=== PATIENT | male | born 1970 | race Two or more races ===

== ENCOUNTER 2023-10-12 14:35 | Inpatient (IN) | payer OTHER ==
[~2023-10-12] VITALS: Ht 167.6 cm; Wt 67.3 kg
[2023-10-12] MEDS: PANTOPRAZOLE SODIUM 40 MG/VIAL IVP ONE (15:02)
[2023-10-12] MEDS: ONDANSETRON HCL 4 MG/2 ML VIAL IVP ONE (15:02)
[2023-10-12] MEDS: SODIUM CHLORIDE 0.9% 1,000 ML IV ONE ×3 (15:02→19:04)
[2023-10-12 15:13] LABS: BASOPHILS % (AUTO) 0.1 % (0.0-2.0); EOSINOPHILS % (AUTO) 0 % (1.0-6.0); HEMATOCRIT 33.9 % (41-53); HEMOGLOBIN 12.3 g/dL (13.5-17.5); LYMPHOCYTES # (AUTO) 0.9 K/uL (1.0-4.8); LYMPHOCYTES % (AUTO) 9.1 % (22.0-44.0); MEAN CORPUSCULAR HEMOGLOBIN 32.3 pg (26.0-34.0); MEAN CORPUSCULAR HGB CONC 36.1 G/dL (31.0-37.0); MEAN CORPUSCULAR VOLUME 90 fL (80-100); MONOCYTES # (AUTO) 0.9 K/uL (0.1-1.0); MONOCYTES % (AUTO) 8.7 % (2.0-9.0); NEUTROPHILS % (AUTO) 82.1 % (40.0-70.0); PLATELET COUNT (AUTO) 140 K/uL (150-450); RED BLOOD CELL COUNT(AUTO) 3.79 MIL/uL (4.50-5.90); WHITE BLOOD COUNT (AUTO) 9.8 K/uL (4.5-11.0)
[2023-10-12 15:25] LABS: ALANINE AMINOTRANSFERASE 71 U/L (12-78); ALBUMIN 2.9 g/dL (3.4-5.0); ALKALINE PHOSPHATASE 88 U/L (46-116); ANION GAP 17 mmol/L (8-16); ASPARTATE AMINOTRANSFERASE 63 U/L (15-37); BILIRUBIN,TOTAL 1.5 mg/dL (0.1-1.0); CALCIUM, TOTAL 7.6 mg/dL (8.8-10.5); CARBON DIOXIDE 24 mmol/L (22-29); CHLORIDE 68 mmol/L (98-107); CREATININE 0.61 mg/dL (0.60-1.30); GLOMERULAR FILTR. RATE CALC > 60 mL/min (>60); GLUCOSE,RANDOM 293 mg/dL (70-110); LIPASE 96 U/L (16-77); TOTAL PROTEIN, SERUM 6.2 g/dL (6.4-8.2); UREA NITROGEN, BLOOD 9 mg/dL (7-18)
[2023-10-12 15:26] LABS: INR 1.1 (0.9-1.1)
[2023-10-12 15:30] LABS: SODIUM SERUM 109 mmol/L (136-145)
[2023-10-12 15:34] LABS: POTASSIUM 2.8 mmol/L (3.5-5.1)
[2023-10-12] MEDS: PANTOPRAZOLE SODIUM 80 MG in SODIUM CHLORIDE 0.9% 100 ML IV SCH (15:46)
[2023-10-12 16:05] LABS: ALCOHOL, BLOOD (SERUM) 363 mg/dL (0-10)
[2023-10-12 16:46] LABS: APPEARANCE,URINE CLEAR (CLEAR); BILIRUBIN,URINE NEGATIVE (NEGATIVE); COLOR,URINE LIGHT YELLOW (YELLOW); GLUCOSE, URINE (UA) >=1000 mg/dL (NEGATIVE); KETONES,URINE 40-60 mg/dL (NEGATIVE); LEUKOCYTE ESTERASE ,URINE NEGATIVE (NEGATIVE); NITRATE,URINE NEGATIVE (NEGATIVE); OCCULT BLOOD,URINE TRACE (NEGATIVE); PROTEIN,URINE TRACE mg/dL (NEGATIVE); UROBILINOGEN,URINE <=1.0 mg/dL (<=1.0)
[2023-10-12 16:58] LABS: SALICYLATE < 2.8 mg/dL (2.8-20.0)
[2023-10-12 16:59] LABS: ACETAMINOPHEN < 2 mcg/mL (10-30)
[2023-10-12 16:59] LABS: POTASSIUM,URINE RANDOM 27 mmol/L (12-75); SODIUM,URINE RANDOM 24 mmol/l (20-110)
[2023-10-12 17:07] LABS: RBC,URINE None Seen /HPF (0-2); WBC,URINE 0-2 /HPF (0-5)
[2023-10-12 17:08] LABS: BACTERIA,URINE None Seen /HPF (None Seen)
[2023-10-12 17:15] LABS: OSMOLALITY,URINE 701 mOsm/kg (50-1500)
[2023-10-12 17:20] LABS: ACETONE,BLOOD NEGATIVE (NEGATIVE)
[2023-10-12] MEDS: OCTREOTIDE ACETATE 100 MCG/ML VIAL IVP ONE (19:02)
[2023-10-12] MEDS: OCTREOTIDE ACETATE 500 MCG in SODIUM CHLORIDE 0.9% 97.5 ML IV SCH (19:03)
[2023-10-12 19:06] LABS: HEMATOCRIT 34.2 % (41-53); HEMOGLOBIN 12.4 g/dL (13.5-17.5)
[2023-10-12 19:20] LABS: ANION GAP 18 mmol/L (8-16); CALCIUM, TOTAL 7.5 mg/dL (8.8-10.5); CARBON DIOXIDE 22 mmol/L (22-29); CHLORIDE 71 mmol/L (98-107); CREATININE 0.53 mg/dL (0.60-1.30); GLOMERULAR FILTR. RATE CALC > 60 mL/min (>60); GLUCOSE,RANDOM 221 mg/dL (70-110); POTASSIUM 3.4 mmol/L (3.5-5.1); UREA NITROGEN, BLOOD 8 mg/dL (7-18)
[2023-10-12 19:24] LABS: SODIUM SERUM 111 mmol/L (136-145)
[2023-10-12] MEDS: POTASSIUM CHL 10 MEQ/WATER 50 ML IV SCH (19:25)
[2023-10-12] MEDS ORDERED: ROCURONIUM BROMIDE 10 MG/ML 5 ML VIAL ONE (19:36)
[2023-10-12] MEDS ORDERED: ETOMIDATE 2 MG/ML 10 ML VIAL ONE (19:36)
[2023-10-12 19:50] VITALS: PULSE 95; RESP 20; O2SAT 100
[2023-10-12 20:40] LABS: GLUCOMETER DEV NAME(LOC) ER.7; GLUCOSE,POINT OF CARE 222 MG/DL (70-110)
[2023-10-12] MEDS: PROPOFOL 1000 MG/ISO-OSM 100 ML IV PRN (20:42)
[2023-10-12] MEDS ORDERED: MIDAZOLAM HCL 5 MG/ML VIAL ONE (20:48)
[2023-10-12] MEDS: MIDAZOLAM HCL 5 MG/ML VIAL IVP ONE (20:56)
[2023-10-12] MEDS: ROCURONIUM BROMIDE 10 MG/ML 5 ML VIAL IVP ONE (21:12)
[2023-10-12] MEDS: ETOMIDATE 2 MG/ML 10 ML VIAL IVP ONE (21:15)
[2023-10-12 21:27] LABS: ANION GAP 16 mmol/L (8-16); CALCIUM, TOTAL 6.6 mg/dL (8.8-10.5); CARBON DIOXIDE 20 mmol/L (22-29); CHLORIDE 76 mmol/L (98-107); CREATININE 0.42 mg/dL (0.60-1.30); GLOMERULAR FILTR. RATE CALC > 60 mL/min (>60); GLUCOSE,RANDOM 196 mg/dL (70-110); PHOSPHORUS 2.9 mg/dL (2.5-4.9); UREA NITROGEN, BLOOD 8 mg/dL (7-18)
[2023-10-12 21:30] LABS: ABG A-A DIFF O2 295.2 mmHg (10-20.0); ABG CARBOXYHEMOGLOBIN 0.4 % (0.0-1.5); ABG HCO3 20.2 mmol/L (22.0-26.0); ABG METHEMOGLOBIN 1.1 % (0.0-1.5); ABG OXYGEN CONTENT 16.6 mL/dL (15.0-23.0); ABG OXYGEN SATURATION 99.7 % (95.0-98.0); ABG OXYHEMOGLOBIN 98.2 % (94.0-100.0); ABG PCO2 33 mmHg (35-45); ABG PH 7.378 (7.35-7.450); ABG TOTAL HEMOGLOBIN 11.3 G/dL (12.0-18.0); O2 DEVICE,BLOOD GAS VENT (ROOM AIR); SITE, BLOOD GAS RT BRACHIAL; SOURCE, BLOOD GAS ARTERIAL; TEMPERATURE, FAHRENHEIT, BG 97.5 FAHREN (96.0-98.6); VT, ABG 420 ml
[2023-10-12 21:31] LABS: PEEP,BG 5 cm H2O
[2023-10-12] MEDS: MIDAZOLAM HCL 100 MG in SODIUM CHLORIDE 0.9% 180 ML IV PRN (21:31)
[2023-10-12 21:54] LABS: POTASSIUM 2.4 mmol/L (3.5-5.1); SODIUM SERUM 112 mmol/L (136-145)
[2023-10-12 22:10] VITALS: PULSE 124; RESP 24; O2SAT 100
[2023-10-12] MEDS: SODIUM CHLORIDE 3% 500 ML IV ONE (22:56)
[2023-10-12] MEDS: MAGNESIUM SULFATE 3 GM in DEXTROSE 5%-WATER 100 ML IV ONE (22:56)
[2023-10-13] VITALS (10 sets, daily range): BP systolic 97–104; BP diastolic 56–67; PULSE 101–134; RESP 21–32; TEMP 99.3–100.7; O2SAT 98–100
[2023-10-13] MEDS: POTASSIUM CHL 10 MEQ/WATER 50 ML IV SCH (00:01)
[2023-10-13 00:50] LABS: ANION GAP 17 mmol/L (8-16); CALCIUM, TOTAL 6.5 mg/dL (8.8-10.5); CARBON DIOXIDE 22 mmol/L (22-29); CHLORIDE 80 mmol/L (98-107); CREATININE 0.42 mg/dL (0.60-1.30); GLOMERULAR FILTR. RATE CALC > 60 mL/min (>60); GLUCOSE,RANDOM 175 mg/dL (70-110); POTASSIUM 3.3 mmol/L (3.5-5.1); UREA NITROGEN, BLOOD 7 mg/dL (7-18)
[2023-10-13 00:56] LABS: SODIUM SERUM 119 mmol/L (136-145)
[2023-10-13] MEDS: PANTOPRAZOLE SODIUM 80 MG in SODIUM CHLORIDE 0.9% 100 ML IV SCH (02:34)
[2023-10-13] MEDS: OCTREOTIDE ACETATE 500 MCG in SODIUM CHLORIDE 0.9% 97.5 ML IV SCH (04:05)
[2023-10-13] MEDS: ACETAMINOPHEN 1000 MG/ISO-OSM 100 ML IV ONE (04:09)
[2023-10-13] MEDS: NOREPINEPHRINE 8 MG/0.9 % NACL 250 ML IV PRN (05:16)
[2023-10-13 05:28] LABS: BASOPHILS % (AUTO) 0.1 % (0.0-2.0); EOSINOPHILS % (AUTO) 0.1 % (1.0-6.0); HEMATOCRIT 27.7 % (41-53); LYMPHOCYTES # (AUTO) 0.6 K/uL (1.0-4.8); LYMPHOCYTES % (AUTO) 6.6 % (22.0-44.0); MEAN CORPUSCULAR HEMOGLOBIN 32.7 pg (26.0-34.0); MEAN CORPUSCULAR VOLUME 91 fL (80-100); MONOCYTES # (AUTO) 0.4 K/uL (0.1-1.0); MONOCYTES % (AUTO) 4.7 % (2.0-9.0); NEUTROPHILS # (AUTO) 7.6 K/uL (1.8-7.7); PLATELET COUNT (AUTO) 90 K/uL (150-450); RED BLOOD CELL COUNT(AUTO) 3.04 MIL/uL (4.50-5.90); RED CELL DISTRIBUTION WIDTH 13.4 % (11.5-14.5); WHITE BLOOD COUNT (AUTO) 8.7 K/uL (4.5-11.0)
[2023-10-13 05:33] LABS: PHOSPHORUS 1.8 mg/dL (2.5-4.9)
[2023-10-13 05:42] LABS: NEUTROPHILS % (AUTO) 88.5 % (40.0-70.0)
[2023-10-13 06:10] LABS: ANION GAP 17 mmol/L (8-16); CALCIUM, TOTAL 6.7 mg/dL (8.8-10.5); CARBON DIOXIDE 21 mmol/L (22-29); CHLORIDE 78 mmol/L (98-107); CREATININE 0.53 mg/dL (0.60-1.30); GLOMERULAR FILTR. RATE CALC > 60 mL/min (>60); GLUCOSE,RANDOM 171 mg/dL (70-110); PHOSPHORUS 1.8 mg/dL (2.5-4.9); POTASSIUM 3.8 mmol/L (3.5-5.1); UREA NITROGEN, BLOOD 7 mg/dL (7-18)
[2023-10-13 06:15] LABS: SODIUM SERUM 116 mmol/L (136-145)
[2023-10-13] MEDS: SODIUM PHOS,M-BASIC-D-BASIC 30 MMOL in DEXTROSE 5%-WATER 250 ML IV ONE (07:16)
[2023-10-13] MEDS: PROPOFOL 1000 MG/ISO-OSM 100 ML IV PRN (10:16)
[2023-10-13 11:57] LABS: ANION GAP 19 mmol/L (8-16); CALCIUM, TOTAL 6.8 mg/dL (8.8-10.5); CARBON DIOXIDE 19 mmol/L (22-29); CHLORIDE 80 mmol/L (98-107); CREATININE 0.59 mg/dL (0.60-1.30); GLOMERULAR FILTR. RATE CALC > 60 mL/min (>60); GLUCOSE,RANDOM 232 mg/dL (70-110); PHOSPHORUS 3.9 mg/dL (2.5-4.9); POTASSIUM 3.5 mmol/L (3.5-5.1); UREA NITROGEN, BLOOD 6 mg/dL (7-18)
[2023-10-13 12:12] LABS: LACTIC ACID 1.5 mmol/L (0.4-2.0)
[2023-10-13 12:24] LABS: SODIUM SERUM 118 mmol/L (136-145)
[2023-10-13] MEDS: ACETAMINOPHEN 650 MG/20.3 ML SOLUTION UDCUP GT PRN (15:43)
[2023-10-13] MEDS: FentaNYL CIT 1000MCG/0.9% NACL 100 ML IV PRN (15:44)
[2023-10-13 17:18] LABS: ANION GAP 12 mmol/L (8-16); CARBON DIOXIDE 22 mmol/L (22-29); CHLORIDE 85 mmol/L (98-107); CREATININE 0.63 mg/dL (0.60-1.30); GLOMERULAR FILTR. RATE CALC > 60 mL/min (>60); GLUCOSE,RANDOM 225 mg/dL (70-110); POTASSIUM 3.6 mmol/L (3.5-5.1); UREA NITROGEN, BLOOD 6 mg/dL (7-18)
[2023-10-13 17:22] LABS: SODIUM SERUM 119 mmol/L (136-145)
[2023-10-13 21:21] LABS: ANION GAP 15 mmol/L (8-16); CALCIUM, TOTAL 7.6 mg/dL (8.8-10.5); CARBON DIOXIDE 25 mmol/L (22-29); CHLORIDE 90 mmol/L (98-107); CREATININE 0.64 mg/dL (0.60-1.30); GLOMERULAR FILTR. RATE CALC > 60 mL/min (>60); GLUCOSE,RANDOM 232 mg/dL (70-110); POTASSIUM 3.4 mmol/L (3.5-5.1); SODIUM SERUM 130 mmol/L (136-145); UREA NITROGEN, BLOOD 6 mg/dL (7-18)
[2023-10-13 21:25] LABS: PHOSPHORUS 2.1 mg/dL (2.5-4.9)
[2023-10-13] MEDS: ETHYL ALCOHOL 62% ANTISEPTIC NASAL SANITIZER 0.6 ML AMPUL NASAL SCH (22:32)
[2023-10-13] MEDS ORDERED: SODIUM CHLORIDE 0.9% 250 ML IV ONE (22:36)
[2023-10-13] MEDS: POTASSIUM CHL 10 MEQ/WATER 50 ML IV PRN (22:52)
[2023-10-14] VITALS (15 sets, daily range): BP systolic 98–146; BP diastolic 65–91; PULSE 98–113; RESP 20–24; TEMP 98.7–101; O2SAT 98–100
[2023-10-14] MEDS ORDERED: MIDAZOLAM HCL 100 MG in SODIUM CHLORIDE 0.9% 180 ML IV PRN (01:00)
[2023-10-14] MEDS ORDERED: NOREPINEPHRINE 8 MG/0.9 % NACL 250 ML IV PRN (01:00)
[2023-10-14 05:55] LABS: HEMATOCRIT 31.4 % (41-53); MEAN CORPUSCULAR HEMOGLOBIN 33.3 pg (26.0-34.0); MEAN CORPUSCULAR HGB CONC 35.1 G/dL (31.0-37.0); MEAN CORPUSCULAR VOLUME 95 fL (80-100); PLATELET COUNT (AUTO) 95 K/uL (150-450); RED BLOOD CELL COUNT(AUTO) 3.32 MIL/uL (4.50-5.90); RED CELL DISTRIBUTION WIDTH 13.6 % (11.5-14.5); WHITE BLOOD COUNT (AUTO) 6.7 K/uL (4.5-11.0)
[2023-10-14 06:06] LABS: ANION GAP 14 mmol/L (8-16); CALCIUM, TOTAL 7.7 mg/dL (8.8-10.5); CARBON DIOXIDE 26 mmol/L (22-29); CHLORIDE 93 mmol/L (98-107); CREATININE 0.69 mg/dL (0.60-1.30); GLOMERULAR FILTR. RATE CALC > 60 mL/min (>60); GLUCOSE,RANDOM 218 mg/dL (70-110); POTASSIUM 3.3 mmol/L (3.5-5.1); SODIUM SERUM 133 mmol/L (136-145); UREA NITROGEN, BLOOD 6 mg/dL (7-18)
[2023-10-14 08:18] LABS: BAND NEUTROPHILS % (MANUAL) 6 % (0-5); LYMPHOCYTES % (MANUAL) 31 % (22-44); MONOCYTES % (MANUAL) 2 % (2-9); SEGMENTED NEUTROPHILS % 61 % (40-70); TOTAL CELLS COUNTED 100
[2023-10-14 08:19] LABS: RBC MORPHOLOGY COMMENT NORMAL RBC MORPH
[2023-10-14] MEDS ORDERED: DEXTROSE 5% IV PRN (09:45)
[2023-10-14] MEDS ORDERED: DEXMEDETOMIDINE HCL IV PRN (09:45)
[2023-10-14] MEDS ORDERED: WATER IV PRN (09:45)
[2023-10-14] MEDS: DEXTROSE 5% IV SCH (11:09)
[2023-10-14] MEDS: WATER IV SCH (11:09)
[2023-10-14] MEDS: PANTOPRAZOLE SODIUM IV SCH (11:09)
[2023-10-14] MEDS: MIDAZOLAM HCL 100 MG in DEXTROSE 5%-WATER 180 ML IV PRN (11:41)
[2023-10-14] MEDS: NOREPINEPHRINE BITARTRATE 8 MG in DEXTROSE 5%-WATER 242 ML IV PRN (12:29)
[2023-10-14] MEDS ORDERED: ACETAMINOPHEN 650 MG RECTAL SUPPOSITORY PR PRN (16:15)
[2023-10-14] MEDS: ACETAMINOPHEN 650 MG RECTAL SUPPOSITORY PR PRN (17:45)
[2023-10-14 17:50] LABS: ANION GAP 13 mmol/L (8-16); CARBON DIOXIDE 25 mmol/L (22-29); CHLORIDE 91 mmol/L (98-107); CREATININE 0.73 mg/dL (0.60-1.30); GLOMERULAR FILTR. RATE CALC > 60 mL/min (>60); GLUCOSE,RANDOM 195 mg/dL (70-110); POTASSIUM 3.9 mmol/L (3.5-5.1); SODIUM SERUM 129 mmol/L (136-145); UREA NITROGEN, BLOOD 6 mg/dL (7-18)
[2023-10-14] MEDS: SODIUM PHOS,M-BASIC-D-BASIC 30 MMOL in DEXTROSE 5%-WATER 250 ML IV ONE ×2 (19:49→22:57)
[2023-10-14] MEDS ORDERED: SODIUM CHLORIDE 0.9% 250 ML IV ONE (19:50)
[2023-10-14 21:39] LABS: ANION GAP 9 mmol/L (8-16); CALCIUM, TOTAL 7.8 mg/dL (8.8-10.5); CARBON DIOXIDE 26 mmol/L (22-29); CHLORIDE 93 mmol/L (98-107); CREATININE 0.53 mg/dL (0.60-1.30); GLOMERULAR FILTR. RATE CALC > 60 mL/min (>60); GLUCOSE,RANDOM 199 mg/dL (70-110); POTASSIUM 3.7 mmol/L (3.5-5.1); SODIUM SERUM 128 mmol/L (136-145); UREA NITROGEN, BLOOD 7 mg/dL (7-18)
[2023-10-15] VITALS (14 sets, daily range): BP systolic 87–132; BP diastolic 56–84; PULSE 78–107; RESP 13–23; TEMP 98.3–99.5; O2SAT 95–100
[2023-10-15 05:47] LABS: BASOPHILS % (AUTO) 0.6 % (0.0-2.0); EOSINOPHILS % (AUTO) 3.8 % (1.0-6.0); HEMATOCRIT 32.6 % (41-53); HEMOGLOBIN 11.3 g/dL (13.5-17.5); LYMPHOCYTES # (AUTO) 0.9 K/uL (1.0-4.8); LYMPHOCYTES % (AUTO) 16.4 % (22.0-44.0); MEAN CORPUSCULAR HGB CONC 34.7 G/dL (31.0-37.0); MEAN CORPUSCULAR VOLUME 95 fL (80-100); MONOCYTES # (AUTO) 0.6 K/uL (0.1-1.0); MONOCYTES % (AUTO) 10.4 % (2.0-9.0); NEUTROPHILS # (AUTO) 3.8 K/uL (1.8-7.7); NEUTROPHILS % (AUTO) 68.8 % (40.0-70.0); PLATELET COUNT (AUTO) 114 K/uL (150-450); RED BLOOD CELL COUNT(AUTO) 3.43 MIL/uL (4.50-5.90); RED CELL DISTRIBUTION WIDTH 13.5 % (11.5-14.5); WHITE BLOOD COUNT (AUTO) 5.5 K/uL (4.5-11.0)
[2023-10-15 06:14] LABS: ANION GAP 12 mmol/L (8-16); CALCIUM, TOTAL 8.3 mg/dL (8.8-10.5); CARBON DIOXIDE 31 mmol/L (22-29); CHLORIDE 90 mmol/L (98-107); CREATININE 0.71 mg/dL (0.60-1.30); GLOMERULAR FILTR. RATE CALC > 60 mL/min (>60); GLUCOSE,RANDOM 182 mg/dL (70-110); PHOSPHORUS 2.5 mg/dL (2.5-4.9); SODIUM SERUM 133 mmol/L (136-145); UREA NITROGEN, BLOOD 6 mg/dL (7-18)
[2023-10-15 06:26] LABS: POTASSIUM 2.9 mmol/L (3.5-5.1)
[2023-10-15] MEDS: POTASSIUM CHL 10 MEQ/WATER 50 ML IV PRN (06:34)
[2023-10-15] MEDS: DEXMEDETOMIDINE HCL 400 MCG in SODIUM CHLORIDE 0.9% 96 ML IV PRN (08:31)
[2023-10-15 15:30] LABS: ANION GAP 9 mmol/L (8-16); CALCIUM, TOTAL 7.8 mg/dL (8.8-10.5); CARBON DIOXIDE 29 mmol/L (22-29); CHLORIDE 94 mmol/L (98-107); CREATININE 0.63 mg/dL (0.60-1.30); GLOMERULAR FILTR. RATE CALC > 60 mL/min (>60); GLUCOSE,RANDOM 192 mg/dL (70-110); POTASSIUM 3.1 mmol/L (3.5-5.1); SODIUM SERUM 132 mmol/L (136-145); UREA NITROGEN, BLOOD 6 mg/dL (7-18)
[2023-10-16] VITALS (12 sets, daily range): BP systolic 94–137; BP diastolic 62–77; PULSE 71–91; RESP 15–24; TEMP 97.8–99.6; O2SAT 99–100
[2023-10-16 05:49] LABS: BASOPHILS % (AUTO) 0.8 % (0.0-2.0); EOSINOPHILS % (AUTO) 3.8 % (1.0-6.0); HEMOGLOBIN 10.5 g/dL (13.5-17.5); LYMPHOCYTES # (AUTO) 0.7 K/uL (1.0-4.8); LYMPHOCYTES % (AUTO) 9.9 % (22.0-44.0); MEAN CORPUSCULAR HEMOGLOBIN 33.2 pg (26.0-34.0); MEAN CORPUSCULAR HGB CONC 34.8 G/dL (31.0-37.0); MEAN CORPUSCULAR VOLUME 95 fL (80-100); MONOCYTES # (AUTO) 1.3 K/uL (0.1-1.0); MONOCYTES % (AUTO) 19.6 % (2.0-9.0); NEUTROPHILS # (AUTO) 4.5 K/uL (1.8-7.7); NEUTROPHILS % (AUTO) 65.9 % (40.0-70.0); PLATELET COUNT (AUTO) 129 K/uL (150-450); RED BLOOD CELL COUNT(AUTO) 3.15 MIL/uL (4.50-5.90); RED CELL DISTRIBUTION WIDTH 13.2 % (11.5-14.5); WHITE BLOOD COUNT (AUTO) 6.8 K/uL (4.5-11.0)
[2023-10-16 06:05] LABS: ALANINE AMINOTRANSFERASE 32 U/L (12-78); ALKALINE PHOSPHATASE 78 U/L (46-116); ANION GAP 16 mmol/L (8-16); ASPARTATE AMINOTRANSFERASE 29 U/L (15-37); CALCIUM, TOTAL 8.2 mg/dL (8.8-10.5); CARBON DIOXIDE 24 mmol/L (22-29); CHLORIDE 93 mmol/L (98-107); GLOMERULAR FILTR. RATE CALC > 60 mL/min (>60); GLUCOSE,RANDOM 185 mg/dL (70-110); POTASSIUM 3.2 mmol/L (3.5-5.1); SODIUM SERUM 133 mmol/L (136-145); TOTAL PROTEIN, SERUM 6.1 g/dL (6.4-8.2); UREA NITROGEN, BLOOD 6 mg/dL (7-18)
[2023-10-16 15:51] LABS: ABG BASE EXCESS -7.6 mmol/L (-2.0-3.0); ABG CARBOXYHEMOGLOBIN 0.3 % (0.0-1.5); ABG HCO3 19.2 mmol/L (22.0-26.0); ABG METHEMOGLOBIN 0.3 % (0.0-1.5); ABG OXYGEN SATURATION 98.5 % (95.0-98.0); ABG OXYHEMOGLOBIN 97.9 % (94.0-100.0); ABG PCO2 30 mmHg (35-45); ABG PH 7.381 (7.35-7.450); ABG TOTAL HEMOGLOBIN 11.5 G/dL (12.0-18.0); O2 DEVICE,BLOOD GAS VENTILATOR (ROOM AIR); PO2, ARTERIAL BG 127.4 mmHg (84.0-92.0); SITE, BLOOD GAS LFT BRACHIAL; SOURCE, BLOOD GAS ARTERIAL; TEMPERATURE, FAHRENHEIT, BG 100.5 FAHREN (96.0-98.6)
[2023-10-16 15:52] LABS: PEEP,BG 5 cm H2O; PRESSURE SUPPORT, BG 0 cm H2O; SPONTANEOUS VT, BG 777 ml; VENT MODE, BG Press. Support Vent. (ROOM AIR)
[2023-10-16] MEDS: [UNRECOGNIZED DRUG - REMARK] IV SCH (17:56)
[2023-10-16] MEDS ORDERED: ONDANSETRON HCL 4 MG/2 ML VIAL IM PRN (23:15)
[2023-10-16] MEDS: ONDANSETRON HCL 4 MG/2 ML VIAL IVP PRN (23:40)
[2023-10-17] VITALS: BP 124/73; PULSE 120; RESP 11; TEMP 98.5
[2023-10-17] MEDS ORDERED: GuaiFENesin/D-METHORPHAN [SUGAR-FREE] 200-20MG/10 ML SYRUP UDCUP PO PRN (02:30)
[2023-10-17] MEDS ORDERED: SODIUM CHLORIDE 0.9% 250 ML IV ONE (03:20)
[2023-10-17 04:00] VITALS: BP 141/48; PULSE 121; RESP 15; TEMP 98.5
[2023-10-17 06:03] LABS: HEMATOCRIT 31.8 % (41-53); MEAN CORPUSCULAR HEMOGLOBIN 32.9 pg (26.0-34.0); MEAN CORPUSCULAR HGB CONC 34.5 G/dL (31.0-37.0); MEAN CORPUSCULAR VOLUME 95 fL (80-100); PLATELET COUNT (AUTO) 173 K/uL (150-450); RED BLOOD CELL COUNT(AUTO) 3.34 MIL/uL (4.50-5.90); RED CELL DISTRIBUTION WIDTH 13.5 % (11.5-14.5); WHITE BLOOD COUNT (AUTO) 7.8 K/uL (4.5-11.0)
[2023-10-17 06:35] LABS: ANION GAP 21 mmol/L (8-16); CARBON DIOXIDE 17 mmol/L (22-29); CHLORIDE 95 mmol/L (98-107); CREATININE 0.65 mg/dL (0.60-1.30); GLOMERULAR FILTR. RATE CALC > 60 mL/min (>60); GLUCOSE,RANDOM 213 mg/dL (70-110); POTASSIUM 3.2 mmol/L (3.5-5.1); SODIUM SERUM 133 mmol/L (136-145); UREA NITROGEN, BLOOD 5 mg/dL (7-18)
[2023-10-17 07:33] LABS: BAND NEUTROPHILS % (MANUAL) 14 % (0-5); LYMPHOCYTES % (MANUAL) 22 % (22-44); MONOCYTES % (MANUAL) 3 % (2-9); RBC MORPHOLOGY COMMENT NORMAL RBC MORPH; SEGMENTED NEUTROPHILS % 61 % (40-70); TOTAL CELLS COUNTED 100
[2023-10-17 08:00] VITALS: BP 149/73; PULSE 118; PULSE 125; RESP 18; TEMP 99.4
[2023-10-17] MEDS: THIAMINE 100 MG/ML 2 ML VIAL IVP SCH (09:10)
[2023-10-17] MEDS: POTASSIUM CHL 10 MEQ/WATER 50 ML IV SCH ×2 (09:11→11:19)
[2023-10-17] MEDS: [UNRECOGNIZED DRUG - REMARK] IV SCH (09:12)
[2023-10-17 12:00] VITALS: BP 155/75; PULSE 118; PULSE 125; RESP 22; TEMP 99
[2023-10-17] MEDS: PROCHLORPERAZINE EDISYLATE 5 MG/ML 2 ML VIAL IVP PRN (14:06)
[2023-10-17 16:00] VITALS: BP 143/67; PULSE 76; PULSE 99; RESP 22; TEMP 98.7
[2023-10-17 20:00] VITALS: BP 89/60; PULSE 91; RESP 22; TEMP 98.2
[2023-10-17 23:01] LABS: APPEARANCE,URINE CLEAR (CLEAR); BILIRUBIN,URINE NEGATIVE (NEGATIVE); COLOR,URINE YELLOW (YELLOW); GLUCOSE, URINE (UA) >=1000 mg/dL (NEGATIVE); KETONES,URINE =>150 mg/dL (NEGATIVE); LEUKOCYTE ESTERASE ,URINE NEGATIVE (NEGATIVE); NITRATE,URINE NEGATIVE (NEGATIVE); OCCULT BLOOD,URINE MODERATE (NEGATIVE); PROTEIN,URINE 30-70 mg/dL (NEGATIVE); SPECIFIC GRAVITIY, URINE 1.034 (1.003-1.030); UROBILINOGEN,URINE <=1.0 mg/dL (<=1.0)
[2023-10-18] VITALS: BP 95/63; PULSE 63; RESP 15; TEMP 97.9
[2023-10-18 00:24] LABS: BACTERIA,URINE None Seen /HPF (None Seen); SQUAMOUS EPITHELIAL CELL,UR Few /LPF (None Seen); WBC,URINE None Seen /HPF (0-5)
[2023-10-18 04:00] VITALS: BP 99/63; PULSE 61; RESP 16; TEMP 97.6
[2023-10-18] MEDS ORDERED: SODIUM CHLORIDE 0.9% 250 ML IV ONE ×2 (05:45→15:43)
[2023-10-18 06:23] LABS: ANION GAP 16 mmol/L (8-16); CARBON DIOXIDE 16 mmol/L (22-29); CHLORIDE 102 mmol/L (98-107); CREATININE 0.48 mg/dL (0.60-1.30); GLOMERULAR FILTR. RATE CALC > 60 mL/min (>60); GLUCOSE,RANDOM 185 mg/dL (70-110); POTASSIUM 3.9 mmol/L (3.5-5.1); SODIUM SERUM 134 mmol/L (136-145); UREA NITROGEN, BLOOD 10 mg/dL (7-18)
[2023-10-18 06:44] LABS: BASOPHILS % (AUTO) 0.2 % (0.0-2.0); EOSINOPHILS % (AUTO) 0.8 % (1.0-6.0); HEMATOCRIT 32.6 % (41-53); HEMOGLOBIN 10.9 g/dL (13.5-17.5); LYMPHOCYTES # (AUTO) 0.8 K/uL (1.0-4.8); MEAN CORPUSCULAR HEMOGLOBIN 32.2 pg (26.0-34.0); MEAN CORPUSCULAR HGB CONC 33.4 G/dL (31.0-37.0); MEAN CORPUSCULAR VOLUME 96 fL (80-100); MONOCYTES # (AUTO) 1.2 K/uL (0.1-1.0); NEUTROPHILS # (AUTO) 5.5 K/uL (1.8-7.7); PLATELET COUNT (AUTO) 191 K/uL (150-450); RED BLOOD CELL COUNT(AUTO) 3.38 MIL/uL (4.50-5.90); RED CELL DISTRIBUTION WIDTH 13.7 % (11.5-14.5); WHITE BLOOD COUNT (AUTO) 7.5 K/uL (4.5-11.0)
[2023-10-18 08:00] VITALS: BP 101/67; PULSE 59; RESP 17; TEMP 98.1
[2023-10-18] MEDS ORDERED: INSULIN REGULAR, HUMAN 100 UNITS/ML IVP PRN (10:00)
[2023-10-18] MEDS ORDERED: POTASSIUM CHL 20 MEQ/0.45% NS 1,000 ML IV PRN (10:00)
[2023-10-18] MEDS: NOREPINEPHRINE 8 MG/0.9 % NACL 250 ML IV PRN (10:18)
[2023-10-18] MEDS: [UNRECOGNIZED DRUG - REMARK] IV SCH (10:32)
[2023-10-18] MEDS: INSULIN REGULAR, HUMAN 100 UNITS/ML IVP ONE (11:00)
[2023-10-18 11:30] LABS: GLUCOMETER DEV NAME(LOC) ICU.S6; GLUCOSE,POINT OF CARE 187 MG/DL (70-110)
[2023-10-18 12:00] VITALS: BP 101/69; PULSE 70; RESP 17; TEMP 98.2
[2023-10-18] MEDS ORDERED: DEXTROSE 50%-WATER 25 GM/50 ML SYRINGE IVP PRN (12:00)
[2023-10-18 12:20] LABS: GLUCOMETER DEV NAME(LOC) ICU.S6; GLUCOSE,POINT OF CARE 200 MG/DL (70-110)
[2023-10-18] MEDS: INSULIN REGULAR, HUMAN 100 UNITS in SODIUM CHLORIDE 0.9% 99 ML IV PRN (12:36)
[2023-10-18 14:21] LABS: GLUCOMETER DEV NAME(LOC) ICU.S6; GLUCOSE,POINT OF CARE 138 MG/DL (70-110)
[2023-10-18 14:21] LABS: GLUCOMETER DEV NAME(LOC) ICU.S6; GLUCOSE,POINT OF CARE 156 MG/DL (70-110)
[2023-10-18 14:42] LABS: ANION GAP 17 mmol/L (8-16); CALCIUM, TOTAL 8.7 mg/dL (8.8-10.5); CARBON DIOXIDE 18 mmol/L (22-29); CHLORIDE 102 mmol/L (98-107); CREATININE 0.58 mg/dL (0.60-1.30); GLOMERULAR FILTR. RATE CALC > 60 mL/min (>60); GLUCOSE,RANDOM 131 mg/dL (70-110); POTASSIUM 3.1 mmol/L (3.5-5.1); SODIUM SERUM 137 mmol/L (136-145); UREA NITROGEN, BLOOD 10 mg/dL (7-18)
[2023-10-18 14:44] LABS: PHOSPHORUS 1.2 mg/dL (2.5-4.9)
[2023-10-18 16:00] VITALS: BP 95/56; PULSE 72; RESP 17; TEMP 99
[2023-10-18] MEDS: DEXTROSE 50%-WATER 25 GM/50 ML SYRINGE IVP PRN (16:08)
[2023-10-18 18:15] LABS: GLUCOMETER DEV NAME(LOC) ICU.S6; GLUCOSE,POINT OF CARE 64 MG/DL (70-110)
[2023-10-18 18:15] LABS: GLUCOMETER DEV NAME(LOC) ICU.S6; GLUCOSE,POINT OF CARE 93 MG/DL (70-110)
[2023-10-18 18:15] LABS: GLUCOMETER DEV NAME(LOC) ICU.S6; GLUCOSE,POINT OF CARE 135 MG/DL (70-110)
[2023-10-18 18:16] LABS: GLUCOMETER DEV NAME(LOC) ICU.S6; GLUCOSE,POINT OF CARE 144 MG/DL (70-110)
[2023-10-18 18:36] LABS: ANION GAP 4 mmol/L (8-16); CALCIUM, TOTAL 6.7 mg/dL (8.8-10.5); CARBON DIOXIDE 29 mmol/L (22-29); CHLORIDE 101 mmol/L (98-107); CREATININE 0.78 mg/dL (0.60-1.30); GLOMERULAR FILTR. RATE CALC > 60 mL/min (>60); SODIUM SERUM 134 mmol/L (136-145); UREA NITROGEN, BLOOD 8 mg/dL (7-18)
[2023-10-18 18:59] LABS: POTASSIUM 6.9 mmol/L (3.5-5.1)
[2023-10-18 19:16] LABS: GLUCOSE,RANDOM 958 mg/dL (70-110)
[2023-10-18 20:00] VITALS: BP 115/64; PULSE 102; PULSE 81; RESP 18; TEMP 99.3
[2023-10-18 22:34] LABS: ANION GAP 15 mmol/L (8-16); CALCIUM, TOTAL 9.1 mg/dL (8.8-10.5); CARBON DIOXIDE 19 mmol/L (22-29); CHLORIDE 101 mmol/L (98-107); CREATININE 0.89 mg/dL (0.60-1.30); GLOMERULAR FILTR. RATE CALC > 60 mL/min (>60); GLUCOSE,RANDOM 85 mg/dL (70-110); POTASSIUM 3.7 mmol/L (3.5-5.1); SODIUM SERUM 135 mmol/L (136-145); UREA NITROGEN, BLOOD 7 mg/dL (7-18)
[2023-10-18 22:37] LABS: PHOSPHORUS 0.8 mg/dL (2.5-4.9)
[2023-10-18] MEDS: POTASSIUM PHOS,M-BASIC-D-BASIC 30 MEQ in DEXTROSE 5%-WATER 150 ML IV ONE (22:43)
[2023-10-19] VITALS: BP 138/70; PULSE 87; PULSE 98; RESP 22; TEMP 98.7
[2023-10-19] MEDS: ZOLPIDEM TARTRATE 5 MG TABLET PO PRN (02:13)
[2023-10-19 02:51] LABS: ANION GAP 11 mmol/L (8-16); CALCIUM, TOTAL 8.9 mg/dL (8.8-10.5); CARBON DIOXIDE 25 mmol/L (22-29); CHLORIDE 100 mmol/L (98-107); CREATININE 0.62 mg/dL (0.60-1.30); GLOMERULAR FILTR. RATE CALC > 60 mL/min (>60); GLUCOSE,RANDOM 79 mg/dL (70-110); PHOSPHORUS 1.5 mg/dL (2.5-4.9); POTASSIUM 3.4 mmol/L (3.5-5.1); SODIUM SERUM 136 mmol/L (136-145); UREA NITROGEN, BLOOD 6 mg/dL (7-18)
[2023-10-19 04:00] VITALS: BP 122/64; PULSE 87; PULSE 89; RESP 24; TEMP 98.5
[2023-10-19 06:01] LABS: BASOPHILS % (AUTO) 0.3 % (0.0-2.0); EOSINOPHILS % (AUTO) 0.6 % (1.0-6.0); HEMATOCRIT 34.4 % (41-53); HEMOGLOBIN 11.6 g/dL (13.5-17.5); LYMPHOCYTES # (AUTO) 0.8 K/uL (1.0-4.8); LYMPHOCYTES % (AUTO) 8.7 % (22.0-44.0); MEAN CORPUSCULAR HEMOGLOBIN 32.1 pg (26.0-34.0); MEAN CORPUSCULAR HGB CONC 33.9 G/dL (31.0-37.0); MEAN CORPUSCULAR VOLUME 95 fL (80-100); MONOCYTES # (AUTO) 1.7 K/uL (0.1-1.0); NEUTROPHILS # (AUTO) 6.7 K/uL (1.8-7.7); NEUTROPHILS % (AUTO) 72.4 % (40.0-70.0); PLATELET COUNT (AUTO) 231 K/uL (150-450); RED BLOOD CELL COUNT(AUTO) 3.62 MIL/uL (4.50-5.90); RED CELL DISTRIBUTION WIDTH 13.8 % (11.5-14.5); WHITE BLOOD COUNT (AUTO) 9.3 K/uL (4.5-11.0)
[2023-10-19 06:17] LABS: ALANINE AMINOTRANSFERASE 39 U/L (12-78); ALBUMIN 2.1 g/dL (3.4-5.0); ALKALINE PHOSPHATASE 125 U/L (46-116); ANION GAP 9 mmol/L (8-16); ASPARTATE AMINOTRANSFERASE 49 U/L (15-37); BILIRUBIN,TOTAL 1.7 mg/dL (0.1-1.0); CARBON DIOXIDE 26 mmol/L (22-29); CHLORIDE 100 mmol/L (98-107); CREATININE 0.52 mg/dL (0.60-1.30); GLOMERULAR FILTR. RATE CALC > 60 mL/min (>60); GLUCOSE,RANDOM 100 mg/dL (70-110); PHOSPHORUS 1.8 mg/dL (2.5-4.9); POTASSIUM 3.2 mmol/L (3.5-5.1); SODIUM SERUM 135 mmol/L (136-145); TOTAL PROTEIN, SERUM 6.1 g/dL (6.4-8.2); UREA NITROGEN, BLOOD 7 mg/dL (7-18)
[2023-10-19 07:16] LABS: GLUCOMETER DEV NAME(LOC) ICUN.5; GLUCOSE,POINT OF CARE 110 MG/DL (70-110)
[2023-10-19 07:16] LABS: GLUCOMETER DEV NAME(LOC) ICUN.5; GLUCOSE,POINT OF CARE 164 MG/DL (70-110)
[2023-10-19 07:16] LABS: GLUCOMETER DEV NAME(LOC) ICUN.5; GLUCOSE,POINT OF CARE 164 MG/DL (70-110)
[2023-10-19 07:16] LABS: GLUCOMETER DEV NAME(LOC) ICUN.5; GLUCOSE,POINT OF CARE 168 MG/DL (70-110)
[2023-10-19 07:16] LABS: GLUCOMETER DEV NAME(LOC) ICUN.5; GLUCOSE,POINT OF CARE 149 MG/DL (70-110)
[2023-10-19 07:16] LABS: GLUCOMETER DEV NAME(LOC) ICUN.5; GLUCOSE,POINT OF CARE 154 MG/DL (70-110)
[2023-10-19 07:16] LABS: GLUCOMETER DEV NAME(LOC) ICUN.5; GLUCOSE,POINT OF CARE 103 MG/DL (70-110)
[2023-10-19 07:16] LABS: GLUCOMETER DEV NAME(LOC) ICUN.5; GLUCOSE,POINT OF CARE 95 MG/DL (70-110)
[2023-10-19 07:16] LABS: GLUCOMETER DEV NAME(LOC) ICUN.5; GLUCOSE,POINT OF CARE 151 MG/DL (70-110)
[2023-10-19 07:16] LABS: GLUCOMETER DEV NAME(LOC) ICUN.5; GLUCOSE,POINT OF CARE 77 MG/DL (70-110)
[2023-10-19 07:16] LABS: GLUCOMETER DEV NAME(LOC) ICUN.5; GLUCOSE,POINT OF CARE 102 MG/DL (70-110)
[2023-10-19 07:16] LABS: GLUCOMETER DEV NAME(LOC) ICUN.5; GLUCOSE,POINT OF CARE 64 MG/DL (70-110)
[2023-10-19 07:16] LABS: GLUCOMETER DEV NAME(LOC) ICUN.5; GLUCOSE,POINT OF CARE 233 MG/DL (70-110)
[2023-10-19 07:16] LABS: GLUCOMETER DEV NAME(LOC) ICUN.5; GLUCOSE,POINT OF CARE 142 MG/DL (70-110)
[2023-10-19 07:16] LABS: GLUCOMETER DEV NAME(LOC) ICUN.5; GLUCOSE,POINT OF CARE 143 MG/DL (70-110)
[2023-10-19 08:00] VITALS: BP 144/93; PULSE 70; RESP 18; TEMP 98.1
[2023-10-19] MEDS: POTASSIUM CHLORIDE 20 MEQ ER TABLET PO ONE (09:56)
[2023-10-19 10:26] LABS: GLUCOMETER DEV NAME(LOC) ICUN.5; GLUCOSE,POINT OF CARE 120 MG/DL (70-110)
[2023-10-19 10:26] LABS: GLUCOMETER DEV NAME(LOC) ICUN.5; GLUCOSE,POINT OF CARE 104 MG/DL (70-110)
[2023-10-19 10:26] LABS: GLUCOMETER DEV NAME(LOC) ICUN.5; GLUCOSE,POINT OF CARE 138 MG/DL (70-110)
[2023-10-19 10:30] LABS: ANION GAP 6 mmol/L (8-16); CALCIUM, TOTAL 8.4 mg/dL (8.8-10.5); CARBON DIOXIDE 29 mmol/L (22-29); CHLORIDE 99 mmol/L (98-107); GLOMERULAR FILTR. RATE CALC > 60 mL/min (>60); GLUCOSE,RANDOM 139 mg/dL (70-110); PHOSPHORUS 1.5 mg/dL (2.5-4.9); POTASSIUM 3.5 mmol/L (3.5-5.1); SODIUM SERUM 134 mmol/L (136-145); UREA NITROGEN, BLOOD 7 mg/dL (7-18)
[2023-10-19 12:00] VITALS: BP 132/82; PULSE 91; RESP 18; TEMP 98.7
[2023-10-19 13:52] LABS: ANION GAP 7 mmol/L (8-16); CALCIUM, TOTAL 8.3 mg/dL (8.8-10.5); CARBON DIOXIDE 27 mmol/L (22-29); CHLORIDE 99 mmol/L (98-107); CREATININE 0.48 mg/dL (0.60-1.30); GLOMERULAR FILTR. RATE CALC > 60 mL/min (>60); GLUCOSE,RANDOM 137 mg/dL (70-110); POTASSIUM 3.6 mmol/L (3.5-5.1); SODIUM SERUM 133 mmol/L (136-145); UREA NITROGEN, BLOOD 4 mg/dL (7-18)
[2023-10-19 13:54] LABS: PHOSPHORUS 1.4 mg/dL (2.5-4.9)
[2023-10-19] MEDS: POTASSIUM PHOS,M-BASIC-D-BASIC 30 MMOL in DEXTROSE 5%-WATER 250 ML IV ONE (15:08)
[2023-10-19 16:00] VITALS: BP 120/82; PULSE 84; RESP 18; TEMP 98.2
[2023-10-19 17:24] LABS: ANION GAP 7 mmol/L (8-16); CALCIUM, TOTAL 8.3 mg/dL (8.8-10.5); CARBON DIOXIDE 30 mmol/L (22-29); CHLORIDE 100 mmol/L (98-107); CREATININE 0.49 mg/dL (0.60-1.30); GLOMERULAR FILTR. RATE CALC > 60 mL/min (>60); GLUCOSE,RANDOM 138 mg/dL (70-110); PHOSPHORUS 2.8 mg/dL (2.5-4.9); SODIUM SERUM 137 mmol/L (136-145); UREA NITROGEN, BLOOD 5 mg/dL (7-18)
[2023-10-19 18:20] LABS: GLUCOMETER DEV NAME(LOC) ICUN.5; GLUCOSE,POINT OF CARE 135 MG/DL (70-110)
[2023-10-19 18:20] LABS: GLUCOMETER DEV NAME(LOC) ICUN.5; GLUCOSE,POINT OF CARE 134 MG/DL (70-110)
[2023-10-19 18:20] LABS: GLUCOMETER DEV NAME(LOC) ICUN.5; GLUCOSE,POINT OF CARE 140 MG/DL (70-110)
[2023-10-19 18:20] LABS: GLUCOMETER DEV NAME(LOC) ICUN.5; GLUCOSE,POINT OF CARE 133 MG/DL (70-110)
[2023-10-19 18:20] LABS: GLUCOMETER DEV NAME(LOC) ICUN.5; GLUCOSE,POINT OF CARE 137 MG/DL (70-110)
[2023-10-19 18:20] LABS: GLUCOMETER DEV NAME(LOC) ICUN.5; GLUCOSE,POINT OF CARE 125 MG/DL (70-110)
[2023-10-19 18:20] LABS: GLUCOMETER DEV NAME(LOC) ICUN.5; GLUCOSE,POINT OF CARE 120 MG/DL (70-110)
[2023-10-19 19:16] LABS: GLUCOMETER DEV NAME(LOC) ICUN.5; GLUCOSE,POINT OF CARE 195 MG/DL (70-110)
[2023-10-19 20:00] VITALS: BP 124/83; PULSE 83; PULSE 94; RESP 20; TEMP 99
[2023-10-19 20:26] LABS: GLUCOMETER DEV NAME(LOC) ICUN.5; GLUCOSE,POINT OF CARE 166 MG/DL (70-110)
[2023-10-19 21:22] LABS: ANION GAP 4 mmol/L (8-16); CALCIUM, TOTAL 8.7 mg/dL (8.8-10.5); CARBON DIOXIDE 31 mmol/L (22-29); CHLORIDE 101 mmol/L (98-107); CREATININE 0.56 mg/dL (0.60-1.30); GLOMERULAR FILTR. RATE CALC > 60 mL/min (>60); GLUCOSE,RANDOM 141 mg/dL (70-110); PHOSPHORUS 3.3 mg/dL (2.5-4.9); POTASSIUM 3.4 mmol/L (3.5-5.1); SODIUM SERUM 136 mmol/L (136-145); UREA NITROGEN, BLOOD 4 mg/dL (7-18)
[2023-10-19] MEDS: PANTOPRAZOLE SODIUM 40 MG/VIAL IVP SCH (22:33)
[2023-10-20] VITALS: BP 136/93; PULSE 98; RESP 14; TEMP 99.2
[2023-10-20 01:30] LABS: ANION GAP 4 mmol/L (8-16); CALCIUM, TOTAL 8.5 mg/dL (8.8-10.5); CARBON DIOXIDE 33 mmol/L (22-29); CHLORIDE 102 mmol/L (98-107); CREATININE 0.57 mg/dL (0.60-1.30); GLOMERULAR FILTR. RATE CALC > 60 mL/min (>60); GLUCOSE,RANDOM 115 mg/dL (70-110); PHOSPHORUS 3.3 mg/dL (2.5-4.9); POTASSIUM 3.1 mmol/L (3.5-5.1); SODIUM SERUM 139 mmol/L (136-145); UREA NITROGEN, BLOOD 5 mg/dL (7-18)
[2023-10-20 04:00] VITALS: BP 107/71; PULSE 77; PULSE 97; RESP 18; TEMP 98.8
[2023-10-20 05:59] LABS: BASOPHILS % (AUTO) 0.8 % (0.0-2.0); EOSINOPHILS % (AUTO) 1.5 % (1.0-6.0); HEMATOCRIT 30.9 % (41-53); HEMOGLOBIN 10.6 g/dL (13.5-17.5); LYMPHOCYTES % (AUTO) 16.1 % (22.0-44.0); MEAN CORPUSCULAR HEMOGLOBIN 32.2 pg (26.0-34.0); MEAN CORPUSCULAR HGB CONC 34.1 G/dL (31.0-37.0); MEAN CORPUSCULAR VOLUME 95 fL (80-100); MONOCYTES # (AUTO) 0.9 K/uL (0.1-1.0); MONOCYTES % (AUTO) 14.4 % (2.0-9.0); NEUTROPHILS # (AUTO) 4.2 K/uL (1.8-7.7); NEUTROPHILS % (AUTO) 67.2 % (40.0-70.0); PLATELET COUNT (AUTO) 240 K/uL (150-450); RED BLOOD CELL COUNT(AUTO) 3.27 MIL/uL (4.50-5.90); RED CELL DISTRIBUTION WIDTH 13.9 % (11.5-14.5); WHITE BLOOD COUNT (AUTO) 6.3 K/uL (4.5-11.0)
[2023-10-20 06:04] LABS: ANION GAP 3 mmol/L (8-16); CALCIUM, TOTAL 8.8 mg/dL (8.8-10.5); CARBON DIOXIDE 32 mmol/L (22-29); CHLORIDE 102 mmol/L (98-107); CREATININE 0.52 mg/dL (0.60-1.30); GLOMERULAR FILTR. RATE CALC > 60 mL/min (>60); GLUCOSE,RANDOM 136 mg/dL (70-110); POTASSIUM 3.4 mmol/L (3.5-5.1); SODIUM SERUM 137 mmol/L (136-145); UREA NITROGEN, BLOOD 4 mg/dL (7-18)
[2023-10-20 06:10] LABS: ACETONE,BLOOD NEGATIVE (NEGATIVE)
[2023-10-20 08:00] VITALS: BP 126/77; PULSE 107; RESP 21; TEMP 99
[2023-10-20 08:16] LABS: GLUCOMETER DEV NAME(LOC) ICUN.5; GLUCOSE,POINT OF CARE 141 MG/DL (70-110)
[2023-10-20 08:16] LABS: GLUCOMETER DEV NAME(LOC) ICUN.5; GLUCOSE,POINT OF CARE 134 MG/DL (70-110)
[2023-10-20 08:16] LABS: GLUCOMETER DEV NAME(LOC) ICUN.5; GLUCOSE,POINT OF CARE 133 MG/DL (70-110)
[2023-10-20 08:16] LABS: GLUCOMETER DEV NAME(LOC) ICUN.5; GLUCOSE,POINT OF CARE 129 MG/DL (70-110)
[2023-10-20 08:16] LABS: GLUCOMETER DEV NAME(LOC) ICUN.5; GLUCOSE,POINT OF CARE 120 MG/DL (70-110)
[2023-10-20 08:16] LABS: GLUCOMETER DEV NAME(LOC) ICUN.5; GLUCOSE,POINT OF CARE 117 MG/DL (70-110)
[2023-10-20 08:16] LABS: GLUCOMETER DEV NAME(LOC) ICUN.5; GLUCOSE,POINT OF CARE 130 MG/DL (70-110)
[2023-10-20] MEDS: POTASSIUM CHLORIDE 20 MEQ ER TABLET PO PRN (08:18)
[2023-10-20 08:20] LABS: GLUCOMETER DEV NAME(LOC) ICUN.5; GLUCOSE,POINT OF CARE 147 MG/DL (70-110)
[2023-10-20 08:20] LABS: GLUCOMETER DEV NAME(LOC) ICUN.5; GLUCOSE,POINT OF CARE 142 MG/DL (70-110)
[2023-10-20 08:20] LABS: GLUCOMETER DEV NAME(LOC) ICUN.5; GLUCOSE,POINT OF CARE 141 MG/DL (70-110)
[2023-10-20 08:20] LABS: GLUCOMETER DEV NAME(LOC) ICUN.5; GLUCOSE,POINT OF CARE 141 MG/DL (70-110)
[2023-10-20 08:20] LABS: GLUCOMETER DEV NAME(LOC) ICUN.5; GLUCOSE,POINT OF CARE 149 MG/DL (70-110)
[2023-10-20 12:00] VITALS: BP 138/77; PULSE 97; RESP 12; TEMP 98.7
[2023-10-20 14:19] LABS: ANION GAP 6 mmol/L (8-16); CALCIUM, TOTAL 8.6 mg/dL (8.8-10.5); CARBON DIOXIDE 31 mmol/L (22-29); CHLORIDE 101 mmol/L (98-107); CREATININE 0.57 mg/dL (0.60-1.30); GLOMERULAR FILTR. RATE CALC > 60 mL/min (>60); GLUCOSE,RANDOM 161 mg/dL (70-110); POTASSIUM 3.7 mmol/L (3.5-5.1); SODIUM SERUM 138 mmol/L (136-145); UREA NITROGEN, BLOOD 5 mg/dL (7-18)
[2023-10-20 16:00] VITALS: BP 116/86; PULSE 97; RESP 14; TEMP 98.8
[2023-10-20] MEDS ORDERED: GLUCAGON,HUMAN RECOMBINANT 1 MG VIAL IM PRN (16:15)
[2023-10-20] MEDS ORDERED: INSULIN LISPRO 100 UNITS/ML SQ PRN (16:15)
[2023-10-20] MEDS: INSULIN GLARGINE,HUM.REC.ANLOG 100 UNITS/ML SQ SCH (16:19)
[2023-10-20] MEDS ORDERED: DEXTROSE 50%-WATER 25 GM/50 ML SYRINGE IVP PRN (16:30)
[2023-10-20 17:26] LABS: GLUCOMETER DEV NAME(LOC) ICUN.5; GLUCOSE,POINT OF CARE 125 MG/DL (70-110)
[2023-10-20 17:26] LABS: GLUCOMETER DEV NAME(LOC) ICUN.5; GLUCOSE,POINT OF CARE 146 MG/DL (70-110)
[2023-10-20 17:26] LABS: GLUCOMETER DEV NAME(LOC) ICUN.5; GLUCOSE,POINT OF CARE 193 MG/DL (70-110)
[2023-10-20 17:26] LABS: GLUCOMETER DEV NAME(LOC) ICUN.5; GLUCOSE,POINT OF CARE 149 MG/DL (70-110)
[2023-10-20 17:26] LABS: GLUCOMETER DEV NAME(LOC) ICUN.5; GLUCOSE,POINT OF CARE 181 MG/DL (70-110)
[2023-10-20 17:26] LABS: GLUCOMETER DEV NAME(LOC) ICUN.5; GLUCOSE,POINT OF CARE 144 MG/DL (70-110)
[2023-10-20 17:26] LABS: GLUCOMETER DEV NAME(LOC) ICUN.5; GLUCOSE,POINT OF CARE 153 MG/DL (70-110)
[2023-10-20] MEDS: INSULIN LISPRO 100 UNITS/ML SQ PRN (18:06)
[2023-10-20 19:20] LABS: GLUCOMETER DEV NAME(LOC) ICU.S6; GLUCOSE,POINT OF CARE 161 MG/DL (70-110)
[2023-10-20 20:00] VITALS: BP 110/80; PULSE 111; PULSE 92; RESP 23; TEMP 98.9
[2023-10-20 20:16] LABS: GLUCOMETER DEV NAME(LOC) ICUN.5; GLUCOSE,POINT OF CARE 156 MG/DL (70-110)
[2023-10-20 23:46] LABS: GLUCOMETER DEV NAME(LOC) ICU.S6; GLUCOSE,POINT OF CARE 161 MG/DL (70-110)
[2023-10-21] VITALS (11 sets, daily range): BP systolic 101–146; BP diastolic 60–95; PULSE 60–124; RESP 17–20; TEMP 98.2–100.3
[2023-10-21 05:58] LABS: BASOPHILS % (AUTO) 1.3 % (0.0-2.0); EOSINOPHILS % (AUTO) 1.4 % (1.0-6.0); HEMATOCRIT 33.1 % (41-53); HEMOGLOBIN 11.1 g/dL (13.5-17.5); LYMPHOCYTES # (AUTO) 1.2 K/uL (1.0-4.8); LYMPHOCYTES % (AUTO) 18.1 % (22.0-44.0); MEAN CORPUSCULAR HEMOGLOBIN 32.1 pg (26.0-34.0); MEAN CORPUSCULAR HGB CONC 33.6 G/dL (31.0-37.0); MEAN CORPUSCULAR VOLUME 96 fL (80-100); MONOCYTES # (AUTO) 0.7 K/uL (0.1-1.0); MONOCYTES % (AUTO) 11.4 % (2.0-9.0); NEUTROPHILS # (AUTO) 4.4 K/uL (1.8-7.7); NEUTROPHILS % (AUTO) 67.8 % (40.0-70.0); PLATELET COUNT (AUTO) 275 K/uL (150-450); RED BLOOD CELL COUNT(AUTO) 3.46 MIL/uL (4.50-5.90); RED CELL DISTRIBUTION WIDTH 14.2 % (11.5-14.5); WHITE BLOOD COUNT (AUTO) 6.5 K/uL (4.5-11.0)
[2023-10-21 06:17] LABS: ALANINE AMINOTRANSFERASE 59 U/L (12-78); ALBUMIN 2.4 g/dL (3.4-5.0); ALKALINE PHOSPHATASE 106 U/L (46-116); ANION GAP 8 mmol/L (8-16); ASPARTATE AMINOTRANSFERASE 71 U/L (15-37); BILIRUBIN,TOTAL 1.1 mg/dL (0.1-1.0); CALCIUM, TOTAL 9.3 mg/dL (8.8-10.5); CARBON DIOXIDE 27 mmol/L (22-29); CHLORIDE 102 mmol/L (98-107); CREATININE 0.56 mg/dL (0.60-1.30); GLOMERULAR FILTR. RATE CALC > 60 mL/min (>60); GLUCOSE,RANDOM 151 mg/dL (70-110); POTASSIUM 3.6 mmol/L (3.5-5.1); SODIUM SERUM 137 mmol/L (136-145); TOTAL PROTEIN, SERUM 6.6 g/dL (6.4-8.2); UREA NITROGEN, BLOOD 6 mg/dL (7-18)
[2023-10-21 06:45] LABS: GLUCOMETER DEV NAME(LOC) 5S.2D; GLUCOSE,POINT OF CARE 162 MG/DL (70-110)
[2023-10-21] MEDS: HYDROCODONE/ACETAMINOPHEN 5-325 MG TABLET PO PRN (08:19)
[2023-10-21] MEDS ORDERED: INSULIN GLARGINE,HUM.REC.ANLOG 100 UNITS/ML SQ SCH (09:00)
[2023-10-21] MEDS: MORPHINE SULFATE 2 MG/ML SYRINGE IVP PRN (09:20)
[2023-10-21 10:25] LABS: COVID AG,FIA SOURCE NASAL SWAB
[2023-10-21 10:38] LABS: APPEARANCE,URINE TURBID (CLEAR); COLOR,URINE DARK YELLOW (YELLOW); GLUCOSE, URINE (UA) 70-100 mg/dL (NEGATIVE); KETONES,URINE 80-100 mg/dL (NEGATIVE); LEUKOCYTE ESTERASE ,URINE LARGE (NEGATIVE); NITRATE,URINE NEGATIVE (NEGATIVE); OCCULT BLOOD,URINE MODERATE (NEGATIVE); PROTEIN,URINE 100-200,SEE CONFIRM mg/dL (NEGATIVE); SPECIFIC GRAVITIY, URINE 1.022 (1.003-1.030)
[2023-10-21 10:43] LABS: BILIRUBIN,URINE SMALL (NEGATIVE)
[2023-10-21 10:46] LABS: SARS-COV2 (COVID) ANTIGEN,FIA Negative (Negative)
[2023-10-21 10:55] LABS: BACTERIA,URINE Many /HPF (None Seen); SULFOSALICYLIC ACID,URINE 2+ (Negative); WBC,URINE >100 /HPF (0-5)
[2023-10-21] MEDS: POTASSIUM CHLORIDE 20 MEQ ER TABLET PO ONE (11:23)
[2023-10-21] MEDS ORDERED: SODIUM CHLORIDE 0.9% 500 ML IV ONE (17:30)
[2023-10-21] MEDS: CefTRIAXone 1 GM/DEXTROSE 50 ML IV SCH (17:40)
[2023-10-21 22:30] LABS: GLUCOMETER DEV NAME(LOC) 5N.1D; GLUCOSE,POINT OF CARE 242 MG/DL (70-110)
[2023-10-21 22:30] LABS: GLUCOMETER DEV NAME(LOC) 5S.2D; GLUCOSE,POINT OF CARE 300 MG/DL (70-110)
[2023-10-21 22:30] LABS: GLUCOMETER DEV NAME(LOC) 5S.2D; GLUCOSE,POINT OF CARE 227 MG/DL (70-110)
[2023-10-22 04:13] VITALS: BP 112/76; PULSE 89; RESP 18; TEMP 98.3
[2023-10-22 06:34] LABS: BASOPHILS % (AUTO) 1.4 % (0.0-2.0); EOSINOPHILS % (AUTO) 2.2 % (1.0-6.0); HEMATOCRIT 30.4 % (41-53); HEMOGLOBIN 10.2 g/dL (13.5-17.5); LYMPHOCYTES # (AUTO) 1.3 K/uL (1.0-4.8); LYMPHOCYTES % (AUTO) 21.6 % (22.0-44.0); MEAN CORPUSCULAR HGB CONC 33.8 G/dL (31.0-37.0); MEAN CORPUSCULAR VOLUME 95 fL (80-100); MONOCYTES # (AUTO) 0.9 K/uL (0.1-1.0); MONOCYTES % (AUTO) 14.5 % (2.0-9.0); NEUTROPHILS # (AUTO) 3.6 K/uL (1.8-7.7); NEUTROPHILS % (AUTO) 60.3 % (40.0-70.0); PLATELET COUNT (AUTO) 279 K/uL (150-450); RED BLOOD CELL COUNT(AUTO) 3.21 MIL/uL (4.50-5.90); RED CELL DISTRIBUTION WIDTH 14.4 % (11.5-14.5); WHITE BLOOD COUNT (AUTO) 5.9 K/uL (4.5-11.0)
[2023-10-22 07:24] LABS: ANION GAP 9 mmol/L (8-16); CARBON DIOXIDE 26 mmol/L (22-29); CHLORIDE 101 mmol/L (98-107); CREATININE 0.55 mg/dL (0.60-1.30); GLOMERULAR FILTR. RATE CALC > 60 mL/min (>60); GLUCOSE,RANDOM 141 mg/dL (70-110); POTASSIUM 3.8 mmol/L (3.5-5.1); SODIUM SERUM 136 mmol/L (136-145); UREA NITROGEN, BLOOD 9 mg/dL (7-18)
[2023-10-22 07:33] VITALS: BP 117/68; PULSE 103; RESP 18; TEMP 98.1
[2023-10-22 11:01] LABS: GLUCOMETER DEV NAME(LOC) 5N.1D; GLUCOSE,POINT OF CARE 199 MG/DL (70-110)
[2023-10-22 11:01] LABS: GLUCOMETER DEV NAME(LOC) 5N.1D; GLUCOSE,POINT OF CARE 168 MG/DL (70-110)
[2023-10-22 11:15] VITALS: BP 116/82; PULSE 103; RESP 18; TEMP 98.4
[2023-10-22 15:38] VITALS: BP 112/76; PULSE 119; RESP 18; TEMP 98.2
[2023-10-22 20:20] LABS: GLUCOMETER DEV NAME(LOC) 5N.1D; GLUCOSE,POINT OF CARE 232 MG/DL (70-110)
[2023-10-22 20:20] LABS: GLUCOMETER DEV NAME(LOC) 5N.1D; GLUCOSE,POINT OF CARE 250 MG/DL (70-110)
[2023-10-22 20:20] LABS: GLUCOMETER DEV NAME(LOC) 5S.2D; GLUCOSE,POINT OF CARE 224 MG/DL (70-110)
[2023-10-22 20:44] VITALS: BP 104/72; PULSE 114; RESP 18; TEMP 99.4
[2023-10-23 00:44] VITALS: BP 118/78; PULSE 88; RESP 18; TEMP 99
[2023-10-23 03:57] VITALS: BP 112/72; PULSE 88; RESP 18; TEMP 99.1
[2023-10-23 06:55] LABS: BASOPHILS % (AUTO) 2.2 % (0.0-2.0); EOSINOPHILS % (AUTO) 1.5 % (1.0-6.0); HEMATOCRIT 30.1 % (41-53); HEMOGLOBIN 10.1 g/dL (13.5-17.5); LYMPHOCYTES # (AUTO) 1.1 K/uL (1.0-4.8); LYMPHOCYTES % (AUTO) 21.7 % (22.0-44.0); MEAN CORPUSCULAR HGB CONC 33.5 G/dL (31.0-37.0); MEAN CORPUSCULAR VOLUME 95 fL (80-100); MONOCYTES # (AUTO) 0.8 K/uL (0.1-1.0); MONOCYTES % (AUTO) 15.8 % (2.0-9.0); NEUTROPHILS % (AUTO) 58.8 % (40.0-70.0); PLATELET COUNT (AUTO) 298 K/uL (150-450); RED BLOOD CELL COUNT(AUTO) 3.16 MIL/uL (4.50-5.90); WHITE BLOOD COUNT (AUTO) 5.1 K/uL (4.5-11.0)
[2023-10-23 07:18] LABS: ANION GAP 8 mmol/L (8-16); CALCIUM, TOTAL 8.9 mg/dL (8.8-10.5); CARBON DIOXIDE 27 mmol/L (22-29); CHLORIDE 100 mmol/L (98-107); CREATININE 0.56 mg/dL (0.60-1.30); GLOMERULAR FILTR. RATE CALC > 60 mL/min (>60); GLUCOSE,RANDOM 163 mg/dL (70-110); POTASSIUM 3.7 mmol/L (3.5-5.1); SODIUM SERUM 135 mmol/L (136-145); UREA NITROGEN, BLOOD 10 mg/dL (7-18)
[2023-10-23 09:21] VITALS: BP 110/66; PULSE 96; RESP 18; TEMP 98.7
[2023-10-23 11:26] VITALS: BP 94/70; PULSE 100; RESP 18; TEMP 98.5
[2023-10-23 15:37] VITALS: BP 105/72; PULSE 101; RESP 18; TEMP 99
[2023-10-23] MEDS ORDERED: MULT-1203 PO (16:18)
[2023-10-23] MEDS ORDERED: INSU3INS3 SQ (16:18)
[2023-10-23] MEDS ORDERED: FOLI0.4T6 PO (16:18)
[2023-10-23] MEDS ORDERED: AMOX-457 PO (16:18)
[2023-10-23] MEDS ORDERED: PANT-31 PO (16:18)
[2023-10-23 20:21] LABS: GLUCOMETER DEV NAME(LOC) 5N.1D; GLUCOSE,POINT OF CARE 180 MG/DL (70-110)
[2023-10-23 20:21] LABS: GLUCOMETER DEV NAME(LOC) 5S.2D; GLUCOSE,POINT OF CARE 159 MG/DL (70-110)
[2023-10-23 20:21] LABS: GLUCOMETER DEV NAME(LOC) 5S.2D; GLUCOSE,POINT OF CARE 234 MG/DL (70-110)
== END 2023-10-23 16:35 | disposition home health service (06) | DRG 242 ==
LOC: EMS 14:35 → EDH 20:02 → ICU 10-13 08:42 → 5S 10-20 23:43
PROVIDERS: ADMIT Hospitalist; ATTEND Hospitalist
PROC: 5A1945Z Respiratory Ventilation, 24-96 Consecutive Hours (ICD-10-PCS; principal; 2023-10-12)
PROC: 0BH17EZ Insertion of Endotracheal Airway into Trachea, Via Natural or Artificial Opening (ICD-10-PCS; 2023-10-12)
PROC: 06HY33Z Insertion of Infusion Device into Lower Vein, Percutaneous Approach (ICD-10-PCS; 2023-10-12)
PROC: 0DB58ZX Excision of Esophagus, Via Natural or Artificial Opening Endoscopic, Diagnostic (ICD-10-PCS; 2023-10-14)
DX: K22.11 Ulcer of esophagus with bleeding (principal); J96.00 Acute respiratory failure, unspecified whether with hypoxia or hypercapnia; G93.41 Metabolic encephalopathy; F10.231 Alcohol dependence with withdrawal delirium; K76.82 Hepatic encephalopathy; D69.6 Thrombocytopenia, unspecified; E87.1 Hypo-osmolality and hyponatremia; D62 Acute posthemorrhagic anemia; E87.20 Acidosis, unspecified; E88.09 Other disorders of plasma-protein metabolism, not elsewhere classified; Z20.822 Contact with and (suspected) exposure to COVID-19; E11.9 Type 2 diabetes mellitus without complications; E87.6 Hypokalemia; I10 Essential (primary) hypertension; K70.30 Alcoholic cirrhosis of liver without ascites; E86.1 Hypovolemia; F32.9 Major depressive disorder, single episode, unspecified; K29.80 Duodenitis without bleeding
CPT/HCPCS: 36600; 70450; 71045; 72125; 72128; 76700; 80048; 80053; 80076; 81001; 81002; 81005; 82009; 82140; 82805; 82962; 83605; 83690; 83735; 83930; 83935; 84100; 84132; 84133; 84300; 85014; 85018; 85025; 85610; 85730; 86850; 86900; 86901; 87040; 87070; 87081; 87086; 87186; 87481; 88305; 92610; 93005; 94002; 94003; 99291; C9113; G0378; G0480; G0481; J0131; J0696; J0780; J1815; J2250; J2270; J2354; J2405; J2704; J3010; J3411; J3475; J3480; J3490; J7030; J7040; J7050; J7060; Q9967; 36415-L1; 36415-TC; X7700